=== PATIENT | female | born 1945 | race Caucasian/White ===

== ENCOUNTER 2023-10-13 15:01 | Emergency (ER) | payer MEDICARE ==
[2023-10-13] MEDS ORDERED: Ketorolac Tromethamine 30 MG (1 mL) VIAL ONE (15:34)
[2023-10-13] MEDS ORDERED: Morphine 4 MG/ML VIAL ONE (15:34)
== END 2023-10-13 17:18 | disposition home or self-care (01) ==
LOC: CSHERS 15:01
DX: M54.50 Low back pain, unspecified (principal); G89.29 Other chronic pain
CPT/HCPCS: 72100; 96372; J1885; J2270